=== PATIENT | female | born 1995 | race Caucasian/White ===

== ENCOUNTER 2018-02-10 13:10 | Inpatient (IN) | payer BC ==
[~2018-02-10] VITALS: Ht 154.9 cm; Wt 78.0 kg
--- NOTE | ~2018-02-10 | EKG ---
[place], [place] ELECTROCARDIOGRAM REPORT NAME: CONRAD VO UNIT #: [id number] ROOM: [id number] DOCTOR: COURT CAMACHO,RAJ BIRTHDATE: [birth year] DOS: 02/10/2018 TIME: 17:52. IMPRESSION: 1. Sinus bradycardia, rate 51. 2. Normal QT interval. 3. No acute ST-T changes. RAJ YUN MD CM:EKGRPT:ELECTROCARDIOGRAM REPORT [id number] RAJ YUN MD
[2018-02-10 14:25] LABS: BASO % 0.4 % (0.0-1.0); EOS # 0.9 10*3/uL (0.0-0.4); EOS % 11.2 % (1.0-4.0); HEMATOCRIT 43.8 % (37.0-47.0); LYMPH # 1.7 10*3/uL (1.3-4.4); LYMPH % 20.7 % (27.0-41.0); MEAN CELL VOLUME 84.7 fl (81.0-99.0); MEAN CORPUSCULAR HGB 27.1 pg (27.0-31.0); MEAN PLATELET VOLUME 11.1 fl (9.6-12.3); MONO # 0.5 10*3/uL (0.1-1.0); MONO % 6.4 % (3.0-9.0); NEUT # 5.2 10*3/uL (2.3-7.9); NEUT % 61.1 % (47.0-73.0); PLATELET COUNT AUTOMATED 199 10*3/uL (130-400); RED BLOOD COUNT 5.17 10*6/uL (4.10-5.10); RED CELL DISTRI WIDTH 14.6 % (0-14.5); WHITE BLOOD COUNT 8.4 10*3/uL (4.8-10.8)
[2018-02-10 14:37] VITALS: BP 125/76
[2018-02-10 14:41] LABS: ALBUMIN 3.7 gm/dl (3.1-4.5); ALKALINE PHOSPHATASE 72 U/L (45-117); BUN 12 mg/dl (7-24); CHLORIDE 104 mmol/L (98-107); CREATININE 0.92 mg/dL (0.55-1.02); LIPASE 116 U/L (73-393); POTASSIUM 3.7 mmol/L (3.5-5.1); SGOT/AST 11 IU/L (3-35); SGPT/ALT 16 U/L (12-78); SODIUM 139 mmol/L (136-145); TOTAL PROTEIN 7.8 gm/dL (6.4-8.2)
[2018-02-10 14:43] LABS: ETHYL ALCOHOL < 3.0 mg/dl (<3)
[2018-02-10 14:44] LABS: BETA-HCG, QUANT < 1.0 mIU/mL (1-3)
[2018-02-10 15:04] LABS: BILIRUBIN NEGATIVE (NEGATIVE); BLOOD NEGATIVE (NEGATIVE); CLARITY CLEAR (CLEAR); COLOR YELLOW (YELLOW); GLUCOSE NEGATIVE (NEGATIVE); KETONE NEGATIVE (NEGATIVE); LEUKO ESTERASE NEGATIVE (NEGATIVE); NITRITE NEGATIVE (NEGATIVE); PH 5.5 (5.0-9.0); SPECIFIC GRAVITY >= 1.030 (1.005-1.030); UROBILINOGEN 0.2 E.U./dl (0.2-1.0)
[2018-02-10 15:11] LABS: URINE AMPHETAMINES < 1000 (1000ng/ml); URINE BARBITURATES < 200 (200ng/ml); URINE BENZODIAZEPINES < 200 (200ng/ml); URINE CANNABINOIDS (THC) < 50 (50ng/ml); URINE COCAINE > 300 (300ng/ml); URINE METHADONE < 300 (300ng/ml); URINE OPIATES > 300 (300ng/ml)
[2018-02-10 15:12] LABS: URINE PHENCYCLIDINE < 25 (25ng/ml)
[2018-02-10 15:24] LABS: BACTERIA 1+; EPITHELIAL CELLS 45-50; MUCOUS 1+
[2018-02-10 16:00] VITALS: BP 95/50
[2018-02-10 20:00] VITALS: BP 117/68
[2018-02-11] VITALS: BP 100/44
[2018-02-11 08:00] VITALS: BP 110/63
[2018-02-11 12:00] VITALS: BP 103/56
[2018-02-11 16:00] VITALS: BP 129/76
[2018-02-11 20:00] VITALS: BP 112/62
[2018-02-12] VITALS: BP 94/75
[2018-02-12 08:00] VITALS: BP 90/60
[2018-02-12 12:00] VITALS: BP 95/51
[2018-02-12 16:07] VITALS: BP 102/83
[2018-02-12 20:17] VITALS: BP 118/75
[2018-02-13] VITALS: BP 112/58
[2018-02-13 08:00] VITALS: BP 110/65
[2018-02-13 12:00] VITALS: BP 110/86
[2018-02-13] MEDS ORDERED: ATARAX,VISTARIL50 MG PO (12:06)
[2018-02-13] MEDS ORDERED: Phenergan25 MG PO (12:06)
[2018-02-13] MEDS ORDERED: ROPINIROLE HYD0.5 MG PO (12:06)
== END 2018-02-13 13:45 | disposition home or self-care (01) | DRG 897 ==
LOC: 4E 13:10
PROVIDERS: Hospitalist
DX: F11.23 Opioid dependence with withdrawal (principal); D72.1 Eosinophilia; D72.810 Lymphocytopenia; F17.200 Nicotine dependence, unspecified, uncomplicated; F14.10 Cocaine abuse, uncomplicated; B19.20 Unspecified viral hepatitis C without hepatic coma; Z79.899 Other long term (current) drug therapy; Z88.8 Allergy status to other drugs, medicaments and biological substances; Z71.6 Tobacco abuse counseling